=== PATIENT | female | born 1960 | race Caucasian/White ===

== ENCOUNTER → 2017-01-01 | Outpatient (CLI) | payer MEDICARE ==
[~2017-01-01] MED LIST: ACETAMINOPHEN-O1 TAB PO; ALBUTEROL-200 PUFFS/ IH; AMBIEN 10MG TAB10 MG PO; APAP/BUTALBITAL1 TA1 PO; ASPIRIN CHILDRE81 MG PO; ASPIRIN EC81 MG PO; ATORVASTATIN CA20 M1 PO; BACTRIM DS 8001 TAB PO; BENADRYL 25MG C25 MG PO; BUPROPION HCL75 M1 PO; BUTALBITAL ACE PO; CEFUROXIME AXE250 MG PO; CELEXA10 MG PO; CITALOPRAM HYDR20 MG PO; CITALOPRAM40 M1 PO; CLINDAMYCIN HC300 MG PO; COUMADIN 5MG TAB5 MG PO; COUMADIN 7.5MG7.5 MG PO; COUMADIN5 MG PO; COUMADIN7.5 MG; DIAZEPAM5 M1 PO; DULOXETINE60 MG PO; ENDOCET 650 MG-1 TAB; FENOFIBRATE145 MG PO; FIORICET 325 MG1 TAB PO; FLEXERIL5 MG PO; GABAPENTIN 600600 MG PO; GABAPENTIN600 MG PO; GLYBURIDE 5MG TA5 MG PO; HYDROMET; IBU800 MG PO; IBUPROFEN800 MG PO; LANTUS INS100 UNITS/ SC; LEVEMIR100 U/ML SC; LEVOTHYROXINE0.1 M1 PO; LEVOTHYROXINE0.1 M2 PO; LEVOTHYROXINE0.1 MG; LORTAB 5/500 501 TAB PO; MELATIN1 TAB PO; METFORMIN 500M500 M1 PO; METFORMIN ER500 MG PO; METFORMIN1000 MG PO; MOTRIN800 MG PO; NAPROSYN500 M1 PO; NEURONTIN600 MG PO; NICOTINE PATCH;21 MG TD; NOVOLIN N100 U/ML SC; OXYCODONE 5MG TA5 MG PO; OXYCODONE AND A1 TA4 PO; Oxycodone5 MG PO; PANTOPRAZOLE SO40 M1 PO; PERCOCET 5/3251 EACH PO; PHENERGAN 25MG.25 M1 PO; PHENERGAN25 M3 PO; PREDNISONE 10MG10 MG PO; PRILOSEC20 M1 PO; PRILOSEC20 MG PO; PROAIR HFA0.09 MG/AC IH; PYRIDIUM200 M2 PO; ROBAXIN-750750 MG PO; SEPTRA DS 800 M1 TAB PO; SIMVASTATIN40 MG PO; TIZANIDINE HCL 44 MG PO; TOPAMAX50 MG PO; TOPIRAMATE50 MG PO; TYLENOL325 MG PO; VERAPAMIL HCL180 MG PO; VERAPAMIL HCL40 MG PO; VERAPAMIL SR 1180 MG PO; VITAMIN D1000 IU PO; WARFARIN SOD5 M1 PO; WARFARIN SOD5 MG PO; WARFARIN SODIU7.5 MG PO; WARFARIN SODIUM10 MG PO; WELLBUTRIN 150150 MG PO; WELLBUTRIN XL150 MG PO; XANAX 0.5MG TA0.5 MG PO; ZESTRIL5 MG PO; ZITHROMAX Z-PA250 M1 PO; ZOCOR40 MG PO
[2017-01-01 16:53] LABS: LYMPH # 3.7 K/mm3 (0.7-4.5)
[2017-01-01 18:05] LABS: HEMOGLOBIN 12.6 g/dL (12.2-16.2)
[2017-01-01 19:00] LABS: BUN 20 mg/dL (7-18)
[2017-01-01 19:03] LABS: GFR (ESTIMATED) 46 ML/MIN (59-)
--- NOTE | 2017-01-04 09:46 | ACUTE CARE PROGRESS NOTE (QUA) ---
Progress Notes Subjective Date 01/04/17 Time 0944 Note SPOKE WITH PATIENT ABOUT INR 2.98 FROM 01/02/17. PATIENT STARTED BACTRIM DS BID ON 01/02/17. HAVING PATIENT TAKE 1/2 TABLET TODAY AND THEN REDUCE DOSE TO 5 MG DAILY THEREAFTER UNTIL FOLLOW UP NEXT SUN. SYLVIE GEE, PHARMD Assessment/Plan This inpt stay is expected to cross 2 MNs from start of care No at 0946
== END ==
LOC: ACC 12-22 15:00 → LAB 15:40
PROVIDERS: Emergency Medicine
DX: Z79.01 Long term (current) use of anticoagulants (principal); Q21.1 Atrial septal defect; E11.9 Type 2 diabetes mellitus without complications

== ENCOUNTER 2017-01-10 13:20 | Outpatient (CLI) | payer MEDICARE | END 2017-01-11 11:42 | LOC: LAB 13:20 → ACC 13:20 | DX: Z79.01 Long term (current) use of anticoagulants (principal); Z51.81 Encounter for therapeutic drug level monitoring; E11.9 Type 2 diabetes mellitus without complications; E03.9 Hypothyroidism, unspecified; Z79.899 Other long term (current) drug therapy | CPT/HCPCS: G0463 ==

== ENCOUNTER 2017-01-25 15:22 | Outpatient (CLI) | payer MEDICARE | END 2017-01-25 15:44 | LOC: ACC 15:22 | DX: Z79.01 Long term (current) use of anticoagulants (principal) | CPT/HCPCS: G0463 ==